=== PATIENT | male | born 1935 | race Caucasian/White ===

== ENCOUNTER 2019-09-10 15:36 | Inpatient (IN) | payer OTHER, MEDICARE ==
[~2019-09-10 15:36] MED LIST: PHENYLEPHRINE-NS 100 MCG/ML 10 ML SYRINGE ONE; Rocuronium Bromide 10 MG/ML (10ML VIAL) ONE
[2019-09-10 16:07] LABS: Hemoglobin 10.7 g/dL (14.0-18.0); Mean Corpuscular HGB CONC 31.7 g/dL (32.0-36.0); Mean Corpuscular Hemoglobin 31.6 pg (27.0-31.0); Mean Corpuscular Volume 99.8 fL (78.0-98.0); RBC Distribution Width 14.8 % (11.5-14.5); Red Blood Cell (RBC) Count 3.38 mill/uL (4.70-6.10); White Blood Cell (WBC) Count 5.6 thou/uL (4.8-10.8)
[2019-09-10 16:12] LABS: INR-International Normal Ratio 1.6; PTT 33.7 SEC (22.9-36.1); Prothrombin Time 18.8 SEC (12.0-14.7)
[2019-09-10 16:28] LABS: Band 10 % (5-11); Eosinophils 1 % (0-10); Helmet Cells SLIGHT = 2-5 cells (100X) (0-1/hpf); Hypochromia SLIGHT = 6-15 cells (100X) (0-5/hpf); Lymphocytes 7 % (21-51); MDiff Complete? YES; Macrocytosis SLIGHT = 6-15 cells (100X) (0-5/hpf); Mean Platelet Volume 9.5 fL (7.4-10.4); Monocytes 7 % (0-10); Neutrophil 75 % (42-75); Ovalocytes SLIGHT = 2-5 cells (100X) (0-1/hpf); Platelet Clumps SLIGHT; Platelet Morphology Comment PLT clumps seen-LOW; Polychromasia SLIGHT = 2-3 cells (100X) (0-2/hpf); Schistocytes SLIGHT = 2-5 cells (100X) (0-1/hpf); Tear Drops SLIGHT = 2-5 cells (100X) (0-1/hpf)
[2019-09-10 16:29] LABS: ALT (SGPT) 21 U/L (8-55); AST (SGOT) 54 U/L (5-34); Albumin 2.8 g/dL (3.4-4.8); Alkaline Phosphatase 96 U/L (40-110); Anion Gap 17 mmol/L (10-20); BUN (Urea Nitrogen) 43 mg/dL (8.4-25.7); Bilirubin, Total 1.5 mg/dL (0.2-1.2); CK (CPK) 208 U/L (30-200); Calc. Creatinine Clearance 0 mL/min (70-130); Carbon Dioxide 15 mmol/L (23-31); Chloride 112 mmol/L (98-107); Estimated GFR-MDRD 47; Globulin 3.1 g/dL (2.4-3.5); Glucose 102 mg/dL (83-110); Lipase 27 U/L (8-78); Potassium 5.4 mmol/L (3.5-5.1); Protein, Total 5.9 g/dL (5.8-8.1); Sodium 139 mmol/L (136-145)
[2019-09-10] MEDS ORDERED: Iopamidol-370 76% 500 ML 1 ML ONE (16:53)
[2019-09-10 16:54] LABS: CKMB 14.3 ng/mL (0-6.6)
[2019-09-10] MEDS ORDERED: Ondansetron PF 4 MG/2 ML Vial ONE ×2 (16:54)
--- NOTE | 2019-09-10 16:57 | CT ---
CT ABDOMEN WITH CONTRAST CT PELVIS WITH CONTRAST: DATE: 09/10/2019 HISTORY: 83-year-old male with hematemesis and hematochezia. COMPARISON: none TECHNIQUE: IV injection of iodinated contrast media: administered. Oral contrast media:Not administered FINDINGS: Poor contrast opacification of abdominal organs. Diffuse mural thickening of distal esophagus. Small right pleural effusion. Very small left pleural effusion. No pneumoperitoneum. Diffuse edema throughout the subcutaneous adipose tissues. Small amount of free fluid within pelvic cavity. Small t o moderate amount of free fluid in the abdominal cavity, especially around the liver. Small right lobe, enlarged caudate lobe, and enlarged left lobe of liver, with very nodular margins. Heterogeneou s mildly low-attenuation throughout large portion of right lobe of liver with ill-defined margins. Suture line along with stomach. The stomach is not narrowed despite the suture line. No splenomegaly. No hydronephrosis. No abdominal aortic aneurysm. No small bowel dilation. Presence of ascites and mesenteric edema makes it difficult to evaluate for colonic diverticulitis. Normal appendix, adrenals , pancreas, and urinary bladder. IMPRESSION: 1) hepatic cirrhosis. 2) possibility of infiltrative hepatocellular carcinoma involving right lobe of liver. 3) diffuse mural thickening of the esophagus. This could represent esophagitis, esophageal cancer, or varices. 4) small volume of ascites, anasarca, and bilateral pleural effusions (right greater than left). 5) bilateral L5 spondylolysis causing grade 1 or 2 spondylolisthesis at L5-S1, with associated severe degenerative disc disease and high-grade bilateral neural foraminal stenosis.
[2019-09-10] MEDS ORDERED: Acetaminophen 650 MG Suppository PR PRN (17:41)
[2019-09-10] MEDS ORDERED: HumaLOG 300 UNITS/3 ML VIAL SC PRN (17:41)
[2019-09-10] MEDS ORDERED: Dextrose 50% Abboject 50 ML SYRINGE SLOW IVP PRN (17:41)
[2019-09-10] MEDS ORDERED: Dextrose 5% in Water 1,000 ML IV PRN (17:41)
[2019-09-10] MEDS ORDERED: Acetaminophen 325 MG TAB PO PRN (17:41)
[2019-09-10] MEDS ORDERED: Guaifenesin DM 100-10/5 ML UDCUP PO PRN (17:41)
[2019-09-10] MEDS ORDERED: Ondansetron PF 4 MG/2 ML Vial IVP PRN (17:41)
[2019-09-10] MEDS ORDERED: Norepinephrine 8 MG/0.9% NS 250 ML IVPB SCH (17:45)
[2019-09-10] MEDS ORDERED: Rocuronium Bromide 10 MG/ML (10ML VIAL) ONE (17:56)
[2019-09-10] MEDS ORDERED: fentaNYL Citrate/PF 2,000 MCG in Sodium Chloride 0.9% 60 ML IV SCH (18:04)
--- NOTE | 2019-09-10 18:51 | CON ---
DATE OF CONSULTATION: 09/10/2019 REQUESTING PHYSICIAN: Aamir Christensen MD REASON FOR CONSULTATION: Hematemesis. HISTORY OF PRESENT ILLNESS: Nitesh Schneider is an 83-year-old man, who gets all of his care through the [facility] system. He gives a history of cirrhosis secondary to nonalcoholic steatohepatitis with complication of hepatocellular carcinoma. He evidently had a lesion treated with therapy back about 6 months ago. There is evidently another lesion for which microwave radiation therapy is planned in the next couple of months. The patient cannot recall ever having undergone upper endoscopy through all of this, so he has no known history of varices. No prior history of gastrointestinal bleeding. He is not on any beta-nae or anticoagulation. He does not take nonsteroidal anti-inflammatory drugs. About 3 days ago, the patient started passing stools that appeared black. This increased in volume today and additionally today, he started having multiple episodes of kaylynn hematemesis. This was a large amount earlier. He is clutching his emesis bag with kaylynn blood in it. He presented to the [facility] mentating well, but with blood pressures of 100 systolic and mild tachycardia of pulse 105. He feels his abdomen is more distended than usual as well. Labs at [facility] demonstrated hemoglobin 11.4. On repeat here, hemoglobin is 10.7. He has received 2 L of fluid evidently and he remains tachycardic. He has some coagulopathy with INR 1.6. Platelets 133. He is not having chest pain or significant shortness of breath. Labs do show troponin elevation to 1.26. Ammonia level is normal at 49. He received a dose of ceftriaxone and dose of 50 mcg of octreotide prior to transfer here. He continues on a Protonix drip, but octreotide drip is also being started. He is going to be transferred to the ICU. REVIEW OF SYSTEMS: Full review of systems including constitutional, head, eyes, ears, nose, throat, GI, , cardiovascular, respiratory, musculoskeletal, neurologic systems is negative except as noted in the HPI. PAST MEDICAL HISTORY: Diabetes type 2, obesity, bariatric surgery 30 years ago ("stomach stapling"), hyperlipidemia, hypertension, cholecystectomy, bilateral knee surgery, tonsillectomy, cirrhosis secondary to VELA, hepatocellular carcinoma, status post radiation therapy 6 months ago. SOCIAL HISTORY: The patient uses tobacco. No alcohol or drug use. FAMILY HISTORY: Noncontributory. ALLERGIES: NO KNOWN DRUG ALLERGIES. OUTPATIENT MEDICATIONS: 1. Amlodipine. 2. Losartan. 3. Metformin. 4. Simvastatin. 5. Glyburide. 6. Robaxin. 7. Vitamin B12. PHYSICAL EXAMINATION: VITAL SIGNS: Temperature 97.7, blood pressure 101/62, pulse 102, and 92% oxygen saturation on room air. GENERAL: Chronically ill appearing 83-year-old man, sitting up in the bed, in mild distress from back discomfort. SKIN: He is pale. No jaundice. No rashes were palpable. EYES: No scleral icterus. Extraocular movements intact. ENT: Mucous membranes moist. No oral lesions. LYMPH: No submandibular or supraclavicular lymphadenopathy. Thyroid nontender to palpation. HEART: Regular. Borderline tachycardia. LUNGS: Clear to auscultation bilaterally. ABDOMEN: Distended, dull to percussion on the flanks. Bowel sounds are present. Nontender to palpation. He has a surgical scar across most of the upper abdomen, he says from his prior stomach stapling surgery. EXTREMITIES: 1+ bilateral lower extremity edema. NEUROLOGIC: Cranial nerves 2 through 12 intact bilaterally. No focal deficits. No asterixis. VESSELS: Radial pulses 2+ bilaterally. MENTAL: He is alert and fully oriented. LABORATORY STUDIES: INR is 1.6. WBC 5.6, hemoglobin 10.7, platelets 133. Sodium 139, potassium 5.4, BUN 43, creatinine 1.43, glucose 102, total bilirubin 1.5, alkaline phosphatase 96, AST 54, ALT 21. CK is 208, CK-MB is 14.3, troponin 1.26. Ammonia normal at 49. BNP is 755.2. Albumin 2.8, lipase normal at 27. IMAGING STUDIES: CT of the abdomen and pelvis demonstrates cirrhosis, diffuse mural thickening of the esophagus, small volume of ascites and anasarca, and possible infiltrative hepatocellular carcinoma involving the right lobe of the liver. ASSESSMENT AND PLAN: 1. Kaylynn hematemesis. 2. Nonalcoholic steatohepatitis cirrhosis. 3. Hepatocellular carcinoma, undergoing treatments through the [facility] in [place]. 4. Coagulopathy, likely secondary to cirrhosis. 5. Troponin elevation, in the context of acute hematemesis and acute blood loss anemia. The patient is presenting with acute kaylynn hematemesis and hypotension all concerning for brisk upper GI bleeding. Importantly, he cannot recall ever having undergone esophagogastroduodenoscopy, though he has known diagnosis of cirrhosis and hepatocellular carcinoma. He is appropriately on IV Protonix and we are starting octreotide drip as well. We are going to need to proceed with emergent upper endoscopy this evening to try to locate the bleeding source, perform therapeutic intervention if indicated. The patient will appropriately be transferred to the ICU. He has already received a dose of ceftriaxone at the outside ER, and this should be continued as prophylaxis in the acute setting. Further recommendations following EGD this evening. Job ID: [id number]
--- NOTE | 2019-09-10 18:51 | HP ---
REASON FOR ADMISSION: Hematemesis, acute blood loss anemia, non-ST elevation AR , acute kidney injury, coagulopathy due to liver disease, and metabolic acidosis. HISTORY OF PRESENTING ILLNESS: The patient gives history of having watery diarrhea on Wednesday. He went nearly 5 to 6 times. No kaylynn blood on Wednesday. Wednesday, he started to have black stools. He has had nearly 10 of them. From yesterday, the patient has been throwing up blood. He says it was heavy yesterday, but the volume he says is coming down from this morning. The patient went to [facility] from where he was transferred here. He has known history of cirrhosis due to nonalcoholic steatohepatitis. The patient does not take any NSAIDs. No history of alcohol use. He continues to smoke. No current complaints of chest pain or palpitations or shortness of breath. He normally ambulates by himself. Off late, he is getting short of breath on exertion when he tries to ambulate outside the house. PAST MEDICAL AND SURGICAL HISTORY: History of cirrhosis due to nonalcoholic fatty liver disease; history of 2 spots in the liver, suspected to be malignancy. He has received Y-190 radioactive treatment 6 months back for 1 of the lesions, second lesion cropped up and there is plan for doing microwave ablation for that at [facility] in the coming months. He also had initial suspicion for spots in the lungs, which later turned out to be negative for malignancy per the patient. Diabetes mellitus type 2, hypertension, dyslipidemia, obesity, bilateral knee replacements, cholecystectomy, and tonsillectomy. No prior cardiac workup per the patient including stress test or stents placed. No history of heart failure in the past. CURRENT MEDICATIONS: The patient is on, 1. Norvasc 5 mg daily. 2. Losartan 50 mg daily. 3. Metformin 500 mg p.o. twice daily. 4. Zocor 20 mg p.o. daily. 5. Glyburide 5 mg twice daily. 6. Robaxin 500 mg q.6 hourly p.r.n. 7. Vitamin B12 of 1000 mcg p.o. daily. ALLERGIES: NO KNOWN DRUG ALLERGIES. PERSONAL HISTORY: Continues to smoke 3 to 4 cigarettes a day. He has been a heavy smoker in the past. Does not abuse alcohol or drugs. Lives alone. He ambulates by himself. FAMILY HISTORY: Mother at the age of 89 years. She has had history of lung cancer. Father at the age of 71 years. He has had history of coronary artery disease. Younger sister of lung cancer at the age of 50. CODE STATUS: The patient is a do not attempt to resuscitate. This was discussed with the patient and the patient's [id number] at bedside. Power of program consultant is his son, and [id number]. REVIEW OF SYSTEMS: CONSTITUTIONAL: Negative for weight loss or gain, ability to conduct usual activities. SKIN: Negative for rash, itching. EYES: Negative for double vision, pain. ENT/MOUTH: Negative for nose bleeding, neck stiffness, pain, tenderness. CARDIOVASCULAR: Negative for palpitations, dyspnea on exertion, orthopnea. RESPIRATORY: Negative for shortness of breath, wheezing, cough, hemoptysis, fever or night sweats. GASTROINTESTINAL: Negative for poor appetite, abdominal pain, heartburn, nausea , vomiting, constipation, or diarrhea. GENITOURINARY: Negative for urgency, frequency, dysuria, nocturia. MUSCULOSKELETAL: Negative for pain, swelling. NEUROLOGIC/PSYCHIATRIC: Negative for anxiety, depression. ALLERGY/IMMUNOLOGIC: Negative for skin rash, bleeding tendency. PHYSICAL EXAMINATION: GENERAL: The patient is an 83-year-old male, who is currently not in any acute distress. VITAL SIGNS: Blood pressure 96/54, pulse 90 per minute, respiratory rate is 18 per minute, the patient is afebrile, and saturating 99% on 2 L nasal cannula. NECK: Supple. No elevated JVD. HEENT: Eyes; extraocular muscles intact. Pupils are reacting to light. Oral cavity, mucous membranes are dry. The patient has active hematemesis at present with blood all over his oral cavity. No lacerations of the tongue or mucous membranes in the mouth. CARDIOVASCULAR SYSTEM: S1 and S2 heard. Regular rhythm. RESPIRATORY SYSTEM: Air entry 1+ bilateral. Scattered rales in the infraaxillary area, rhonchi plus bilateral. ABDOMEN: Mildly distended. No tenderness, rigidity, or guarding. EXTREMITIES: 1+ peripheral edema. No calf tenderness. VASCULAR SYSTEM: Peripheral pulses 1+ bilateral. No ischemic ulcerations or gangrene. CENTRAL NERVOUS SYSTEM: No gross focal deficits noted. The patient is alert, awake, and oriented well. PSYCHIATRIC SYSTEM: The patient's mood is euthymic. No hallucinations or delusions. LABORATORY DATA: H and H are 10.7 and 33 at present. He has had a previous CBC done at 2:30 p.m., H and H were 11 and 37, platelet count was 133 at 2:30 p.m. with 74% neutrophils. PT/INR 18/1.6, PTT is 33, serum bicarb 15, potassium 5.4, BUN 43, creatinine 1.4, serum glucose 102, total bilirubin 1.5. AST and ALT 54 and 21, alkaline phosphatase is 96. CK levels 208, CK-MB 14.3, troponin I 1.26. BNP is 755. Albumin is 2.8. CT abdomen and pelvis done shows findings of cirrhosis. There is possible day of infiltrative hepatocellular carcinoma involving right lobe of liver. There is diffuse mural thickening of the esophagus, could be due to esophageal cancer versus small volume ascites, anasarca, bilateral pleural effusions, right greater than left. There is bilateral L5 spondylosis. EKG done shows normal sinus rhythm at 80 beats per minute. There is T-inversion seen in anterolateral leads. The patient has low voltage EKG as well with poor R-wave progression. CLINICAL IMPRESSION AND PLAN: The patient will be admitted to ICU for hemorrhagic shock with hematemesis, acute blood loss anemia, metabolic acidosis, acute kidney injury, non ST elevation myocardial infarction, possible volume overload. He has already received total of around 2 L of IV fluid in the ER. We will continue him on Protonix 8 mg an hour, octreotide 25 to 50 mcg an hour, and Levophed for pressure support. He will be on nitroglycerin paste half-inch q.8 hourly. The patient will likely go for upper endoscopy shortly. Dr. Daniel Cadena has evaluated the patient here. We will give him 1 unit of packed cell and likely 2 units of FFP as well. He has mild coagulopathy due to liver disease. Echo with 2D Doppler for left ventricular function. I have spoken to Dr. Weiss for Cardiology. He will be kept n.p.o. for now except for medications. The patient has multiple medical issues as described above. Code status was discussed with him and he wants to be a do not attempt to resuscitate. We will also keep a close eye on his fingerstick glucose as well. I have consulted Dr. Fong for Pulmonary and Critical Care as well. I have given complete updates to the patient and his family at bedside. Job ID: [id number] MTDD
--- NOTE | 2019-09-10 19:10 | RAD ---
RADIOGRAPH CHEST 1 VIEW: DATE: 09/10/2019 TIME: 6:17 PM HISTORY: Status post intubation in 83-year-old male COMPARISON: 12/24/2013 FINDINGS: New endotracheal tube with distal tip overlying mid thoracic trachea. New esophagogastric tube is dif ficult to visualize inferior to the midportion of the mediastinum because of exposure technique. New prominent interstitial markings at lower lung zones. Right lateral costophrenic angle excluded fr om [id number]. No cardiomegaly. No pneumothorax. No consolidation. IMPRESSION: 1) status post intubation with endotracheal tube. 2) esophagogastric tube is difficult to visualize.
[2019-09-10 19:21] LABS: Hemoglobin 10.3 g/dL (14.0-18.0)
[2019-09-10 19:29] LABS: Bacteria/HPF None Seen HPF (None Seen); Bilirubin Negative (Negative); Blood, Urine Trace (Negative); Clarity Clear (Clear); Glucose, Urine (Dipstick) Normal (Negative); Leukocyte Negative Leu/uL (Negative); Nitrite Negative (Negative); Protein, Urine (Dipstick) 30 mg/dL (Neg-Trace); Squamous Epithelial 0-3 HPF (0-3); Urobilinogen Normal mg/dL (Less than 2)
[2019-09-10] MEDS ORDERED: Ketamine 50 MG/ML (10ML VIAL) ONE (19:49)
[2019-09-10] MEDS ORDERED: Phenylephrine HCL 10 MG/ML VIAL ONE (20:23)
[2019-09-10] MEDS: Sodium Chloride 0.9% 1,000 ML IV SCH (21:13)
[2019-09-10] MEDS: Octreotide Acetate 1,250 MCG in Sodium Chloride 0.9% 250 ML 250 ML IVPB SCH (21:26)
[2019-09-10] MEDS ORDERED: Octreotide Acetate 1,250 MCG in Sodium Chloride 0.9% 250 ML 250 ML IVPB SCH (21:30)
[2019-09-10 22:13] LABS: Critical Call Chem Troponin I RESULT DECREASING; Troponin I 1.342 ng/mL (< 0.028)
[2019-09-10 22:33] LABS: Actual Bicarbonate (HCO3a) 15.5 mEq/L (22-28); Base Excess (BEa) -11.2 mEq/L (-2.0 to +3.0); CO2 Tension 37.8 mmHg (35.0-45.0); Calcium, Ionized 1.16 mmol/L (1.12-1.30); Carboxyhemoglobin (COHb) 1.1 gm% (0.0-3.0); Hemoglobin (Hb) 11.9 g/dL (14.0-18.0); Potassium - ABG Lab 5.34 mmol/L (3.70-5.30)
[2019-09-10 22:41] LABS: pH, Arterial 7.23 (7.35-7.45)
[2019-09-10 22:42] LABS: Puncture Site RBA
[2019-09-10] MEDS: Pantoprazole 80 MG, Admixture Fee 1 EACH in Sodium Chloride 0.9% 100 ML IVPB SCH (23:02)
--- NOTE | 2019-09-10 23:15 | OP ---
DATE OF PROCEDURE: 09/10/2019 NAIL STICKER SURGEON: None. PROCEDURE PERFORMED: Esophagogastroduodenoscopy with endoscopic variceal band ligation and control of hemorrhage. MEDICATIONS: See Anesthesia record. FINDINGS: After discussion of the risks, benefits, and alternatives of the procedure, informed consent was obtained and witnessed. Pre-endoscopic cardiopulmonary examination was satisfactory. Time-out was performed before sedation was achieved. Sedation was achieved with Anesthesia assistance in the endoscopy unit. The patient was already endotracheally intubated and sedated. He was placed in the left lateral decubitus position. A Pentax adult upper endoscope was placed into the oropharynx and passed through the cricopharyngeus under direct visualization. The entire esophagus was filled with blood and clots. This was completely removed. Examination of the esophagus demonstrated 3 trunks of large esophageal varices in the distal esophagus. Just above the GE junction at 40 cm, there was a red spot with fibrin clot, considered to represent his recent bleeding site. It was not actively bleeding at this time. The endoscope was advanced into the stomach. The entire proximal stomach was full of fresh blood and clots. This was nearly completely evacuated, and I was able to get a good examination of the gastric mucosa. The patient has some postoperative deformity, which is a bit unusual. He has essentially a sleeve like area from the GE junction at 40 cm, down to 50 cm, with an area of narrow gastric lumen. There was some mucosal irritation and friability within this area, but no bleeding lesion identified, no gastric varices visualized. Beyond this area, on retroflexed view, there demonstrated a very deep paraesophageal hernia. With the endoscope retroflexed, I am really unable to get very far into this hernia space. There is a lot of dark blood and clots within that area, but no new blood issuing from that area, so it is not likely that there is a bleeding lesion within that paraesophageal hernia. There were no gastric varices visualized on retroflexion. After evacuating out copious blood from the stomach, there does appear to be some diffuse [id number] portal hypertensive gastropathy, but no bleeding lesion within the stomach. The endoscope was advanced through the pylorus and into the first and second portions of the duodenum, which appeared normal. The endoscope was then withdrawn back up into the distal esophagus. The variceal band ligation kit was applied to the tip of the endoscope. I then applied 3 bands successfully to varices in the distal esophagus, including over the red spot with fibrin clot in the very distal esophagus. Deployment was successful. At this point, the upper endoscope was completely withdrawn and the patient allowed to recover. The patient tolerated the procedure well. There were no immediate postprocedure complications. IMPRESSION: 1. Three trunks of large distal esophageal varices, including one with red spot and fibrin clot near the GE junction, representing the probable site of this bleeding episode. Three bands placed to varices in the distal esophagus, including over the fibrin clot, successfully. 2. Postoperative anatomy in the proximal stomach, with sleeve like area from 40 to 50 cm, mucosal friability in this area, but no bleeding site identified there. 3. Large paraesophageal hiatal hernia. 4. Diffuse portal hypertensive gastropathy. 5. No gastric varices visualized. RECOMMENDATIONS: 1. IV octreotide drip needs to run for the next 72 hours. 2. 2 units of FFP now. 3. Continue to trend H and H, transfuse as needed. 4. Continue IV ceftriaxone daily. 5. If the patient recovers from this acute episode, on hospital discharge, he will need a nonselective beta nae for variceal bleeding prophylaxis. He will also need to follow up closely [facility] [employer] [facility] [place], for repeat EGD with variceal banding in the next 1 to 2 months. 6. GI will continue to follow. Prognosis remains guarded. Job ID: [id number]
[2019-09-11] MEDS ORDERED: EPINEPHrine 1 MG/10 ML Abboject SYRINGE ONE (00:04)
[2019-09-11 00:41] LABS: Hemoglobin 10.9 g/dL (14.0-18.0)
[2019-09-11] MEDS: Norepinephrine 8 MG in Dextrose 5% in Water 242 ML IVPB PRN ×2 (02:16→18:44)
[2019-09-11] MEDS: Nitroglycerin 2% Ointment 1 INCH/1 GM Packet TOP SCH ×2 (02:35→05:41)
[2019-09-11 04:12] LABS: Anion Gap 14 mmol/L (10-20); BUN (Urea Nitrogen) 49 mg/dL (8.4-25.7); Carbon Dioxide 19 mmol/L (23-31); Chloride 112 mmol/L (98-107); Potassium 5.3 mmol/L (3.5-5.1); Sodium 140 mmol/L (136-145)
[2019-09-11 04:13] LABS: ALT (SGPT) 29 U/L (8-55); AST (SGOT) 79 U/L (5-34); Alkaline Phosphatase 87 U/L (40-110); Bilirubin, Total 2.3 mg/dL (0.2-1.2); Calc. Creatinine Clearance 65 mL/min (70-130); Calcium 8.8 mg/dL (7.8-10.44); Estimated GFR-MDRD 45; Globulin 3.2 g/dL (2.4-3.5); Glucose 153 mg/dL (83-110); Protein, Total 6.2 g/dL (5.8-8.1)
[2019-09-11] MEDS: Pantoprazole 80 MG, Admixture Fee 1 EACH in Sodium Chloride 0.9% 100 ML IVPB SCH (05:41)
[2019-09-11] MEDS: Sodium Chloride 0.9% 1,000 ML IV SCH (05:41)
[2019-09-11] MEDS: HumaLOG 300 UNITS/3 ML VIAL SC PRN ×2 (06:09→17:54)
[2019-09-11 06:42] LABS: Hemoglobin 11.7 g/dL (14.0-18.0)
[2019-09-11 08:03] VITALS: BP 101/75
[2019-09-11] MEDS: cefTRIAXone\\ROCEPHIN 2 GM in Sodium Chloride 0.9% 100 ML IVPB SCH (09:05)
--- NOTE | 2019-09-11 10:08 | PRG ---
DATE OF SERVICE: 09/11/2019 SUBJECTIVE: Mr. Schneider had an uneventful evening following his endoscopy last night. He remains on the ventilator, sedated. He has been hemodynamically stable after 5 units of RBCs and 4 units FFP. His hemoglobin is 11.7 today, so overall held steady. There has been no report of any further hematemesis, no melenic stools. OBJECTIVE: VITAL SIGNS: Blood pressure 97/42, pulse 88, 98% oxygen saturation on ventilator, and temperature is 98.1. GENERAL: Chronically ill, intubated, sedated. HEART: Regular rate and rhythm. LUNGS: Bibasilar crackles. ABDOMEN: Mild distention. Bowel sounds are present. Nontender to palpation. EXTREMITIES: 1+ bilateral lower extremity edema. LABORATORY STUDIES: Hemoglobin 11.7, hematocrit 34.8, platelets are 133, WBC 5.6. INR 1.6. Sodium 140, potassium 5.3, BUN 49, creatinine 1.50, glucose 157, total bilirubin 2.3, alkaline phosphatase 87, AST 79, ALT 29. Troponin was 1.34, albumin 3.0. ASSESSMENT AND PLAN: 1. Esophageal varices with hemorrhage, status post endoscopic band ligation x3 last night. 2. Large paraesophageal hiatal hernia. 3. Diffuse portal hypertensive gastropathy. 4. Acute blood loss anemia, appears to be stable after initial transfusions. 5. Cirrhosis, secondary to nonalcoholic steatohepatitis. 6. Hepatocellular carcinoma. Overall, it appears there is no further evidence of overt bleeding since his presentation last night. The patient will need to remain on the octreotide drip 50 mcg/hour for at least 72 hours from last night. The Protonix can be transitioned to 40 mg IV q.12 hours. I would continue with the IV ceftriaxone. Hopefully, he will be able to be extubated later today. If so, he could have a clear liquid diet today. 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 7. Please call anytime with questions or concerns. Job ID: [id number]
[2019-09-11] MEDS ORDERED: Sodium Chloride 0.9% (PF) 10 ML VIAL FS PRN (11:40)
[2019-09-11 12:18] LABS: Hemoglobin 11.7 g/dL (14.0-18.0)
[2019-09-11] MEDS ORDERED: Furosemide 40 MG/4 ML VIAL SLOW IVP SCH (12:30)
--- NOTE | 2019-09-11 13:29 | CON ---
DATE OF CONSULTATION: 09/11/2019 SERVICE: Pulmonary Medicine. REASON FOR CONSULTATION: ICU patient. 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 He was in his usual state of health when he started vomiting up blood. Originally, he was unstable. He was intubated for airway protection. He went down for an EGD and got banded x3. He is left on mechanical ventilation for the dust settle overnight. Currently, he is breathing very comfortably. He is awake and alert. He is able to answer to simple commands. PAST MEDICAL HISTORY: 1. 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 2. Nonalcoholic steatohepatitis. 3. Liver cancer, suspected. 4. Type 2 diabetes mellitus. 5. Hypertension. 6. Dyslipidemia. 7. Morbid obesity. PAST SURGICAL HISTORY: 1. Bilateral knee replacements. 2. Cholecystectomy. 3. Tonsillectomy. ALLERGIES: NO KNOWN DRUG ALLERGIES. MEDICATIONS: List of his inpatient medications was reviewed. Multiple updates were made at this time. FAMILY HISTORY: Noncontributory. SOCIAL HISTORY: He smokes half a pack on a daily basis. He has a greater than 50 pack-year history of smoking. Denies any significant alcohol or illicit drugs. REVIEW OF SYSTEMS: General; head, ears, eyes, nose, throat; cardiovascular; respiratory; GI; ; musculoskeletal; neurologic; and skin are negative except as mentioned in the HPI. PHYSICAL EXAMINATION: VITAL SIGNS: Afebrile, pulse 89, blood pressure 100/67, respirations 11, and saturation 94% currently on 27% FiO2 delivered via ventilator with a PEEP of 5. GENERAL: The patient is intubated and sedated. HEENT: Normocephalic and atraumatic. Sclerae white. Conjunctivae pink. Oral mucosa is moist without lesions. LUNGS: Decent air entry. Dependent crackles are present. No prolonged expiratory phase is present. Rhonchi are there, but clear with cough. No wheezing. HEART: Normal rate and regular. ABDOMEN: Soft, nontender, and nondistended. Bowel sounds are positive. MUSCULOSKELETAL: No cyanosis or clubbing. No pitting in the bilateral lower extremities. NEUROLOGIC: Grossly nonfocal. LABORATORY DATA: Hemoglobin 11.7 and currently stable. INR 1.6. A pH 7.23, pCO2 of 37, pO2 of 99. Creatinine 1.50, which is gently up trending and above the baseline from 2014 of 0.4. BUN 49. Potassium 5.3 and gently downtrending. Basic metabolic profile is otherwise unremarkable. Total bilirubin 2.3, AST 79, ALT and alkaline phosphatase are normal. Troponin is trending downward to 1.3. Urinalysis is unremarkable. IMAGING: CT of the abdomen and pelvis demonstrates hepatic cirrhosis. Suspected hepatocellular carcinoma in the right lobe of the liver. Diffuse mural thickening of the esophagus. Small volume ascites. Lung windows are clean. His chest x- ray demonstrates good placement of the endotracheal tube. The enteric catheter courses midline. ASSESSMENT: 1. Respiratory failure secondary to inability to protect airway. 2. Acute blood loss anemia. 3. Hemorrhagic shock, resolved. 4. Qyg-TL-[id number] myocardial infarction secondary to demand from the stressful event. 5. Nonalcoholic steatohepatitis. 6. Variceal bleed. 7. Cirrhosis, advanced. 8. Acute kidney injury, presumed. DISCUSSION AND PLAN: We will give the patient a dose of Lasix, now that his hemodynamics is stabilized to touch. I will put him on a spontaneous breathing trial with pressure support ventilation at 5/5. If he meets criteria, extubation will be considered. Pulmonary/Critical Care will continue to follow along in this location. He needs remain in the ICU for an additional 24 hours. If he is doing well, he can be transitioned to the floor in the morning. Critical care time: 30 minutes. Job ID: [id number] MTDD
--- NOTE | 2019-09-11 14:21 | PDOC.HOSPP ---
- Subjective Encounter Date: 09/11/19 Encounter Time: 12:00 Subjective: got extubated this am, doing well responds to verbal stimuli son at bedside - Objective Vital Signs & Weight: Vital Signs (12 hours) Temp Pulse Pulse Resp BP BP Pulse Ox 09/11/19 13:04 90 13 09/11/19 12:00 97.8 F 92 L 09/11/19 08:00 98.1 F 11 L 99 09/11/19 07:54 92 101/75 09/11/19 06:00 15 09/11/19 04:00 97.5 F L 20 09/11/19 02:30 97.5 F L 88 15 105/56 L 94 L Weight Weight 280 lb 6.848 oz Most Recent Monitor Data Heart Rate from ECG 103 NIBP 108/62 NIBP BP-Mean 77 Respiration from ECG 13 SpO2 94 I&O: 09/10/19 09/11/19 09/12/19 06:59 06:59 06:59 Intake Total 2308 64 Output Total 625 140 Balance 1683 -76 Result Diagrams: 09/11/19 12:05 09/11/19 03:40 Additional Labs: Accuchecks 09/11/19 09/11/19 09/11/19 11:46 06:09 00:52 POC Glucose 160 H 157 H 122 H Hospitalist ROS - Medication Medications: Active Medications Generic Name Dose Route Start Last Admin Trade Name Freq PRN Reason Stop Dose Admin Albuterol/Ipratropium 3 ml 09/10/19 19:00 09/11/19 13:04 Duoneb NEB 3 ml [id number] KAVITA Administration Furosemide 40 mg 09/11/19 12:30 09/11/19 12:55 Lasix SLOW IVP 09/11/19 14:30 40 mg NOW KAVITA Administration Ceftriaxone Sodium 2 gm/ 100 mls @ 200 mls/hr 09/11/19 09:00 09/11/19 09:05 Sodium Chloride IVPB 100 mls Q24HR KAVITA Administration Octreotide Acetate 1,250 mcg/ 251.25 mls @ 10.05 mls/hr 09/10/19 17:45 21:26 Sodium Chloride IVPB 09/13/19 23:59 251.25 mls INF KAVITA Administration 50 MCG/HR Norepinephrine Bitartrate 8 mg 250 mls @ 0 mls/hr 09/11/19 01:51 09/11/19 02: 16 / Dextrose/Water IVPB 250 mls INF PRN Administration TO MAINTAIN MAP > 65 Protocol As Directed Insulin Human Lispro 0 units 09/10/19 17:41 09/11/19 06:09 Humalog SC 2 unit .MODERATE SLIDING SC PRN Administration Moderate Correctional Scale - Exam General Appearance: awake alert Eye: PERRL, anicteric sclera ENT: no oropharyngeal lesions, dry oral mucosa Neck: supple, no JVD Heart: RRR, no murmur Respiratory: no wheezes, no rales, rhonchi Gastrointestinal: soft, non-tender, non-distended, normal bowel sounds Extremities: no cyanosis, 1+ LE edema Neurological: cranial nerve grossly intact, no focal deficits Hosp A/P (1) GI bleed Code(s): K92.2 - GASTROINTESTINAL HEMORRHAGE, UNSPECIFIED Status: Acute (2) Acute blood loss anemia Code(s): D62 - ACUTE POSTHEMORRHAGIC ANEMIA Status: Acute (3) Cirrhosis Code(s): K74.60 - UNSPECIFIED CIRRHOSIS OF LIVER Status: Chronic Qualifiers: Hepatic cirrhosis type: other cirrhosis Qualified Code(s): K74.69 - Other cirrhosis of liver (4) MK (acute kidney injury) Code(s): N17.9 - ACUTE KIDNEY FAILURE, UNSPECIFIED Status: Acute (5) NSTEMI (non-ST elevated myocardial infarction) Code(s): I21.4 - NON-ST ELEVATION (NSTEMI) MYOCARDIAL INFARCTION Status: Acute (6) Metabolic acidosis Code(s): E87.2 - ACIDOSIS Status: Acute (7) Coagulopathy Status: Acute (8) Tobacco abuse Code(s): Z72.0 - TOBACCO USE Status: Acute - Plan got a total of 4 u prbc and 3 ffp's had banding of 3 varices in esophagus on protonix iv, octreotide drip lasix, empiric cefriaxone hemostable now may start clear liq diet from this evening if ok with GI I have updates to son at bedside
[2019-09-11] MEDS: Octreotide Acetate 1,250 MCG in Sodium Chloride 0.9% 250 ML 250 ML IVPB SCH (18:43)
[2019-09-11] MEDS ORDERED: Cepastat Lozenges 1 LOZ PO PRN (20:35)
[2019-09-11] MEDS: Benzonatate 100 MG CAP PO PRN (20:41)
[2019-09-11] MEDS: Pantoprazole 40 MG VIAL IVP SCH (20:42)
[2019-09-11] MEDS ORDERED: Pantoprazole 40 MG VIAL IVP SCH (21:00)
--- NOTE | 2019-09-12 00:35 | CON ---
DATE OF CONSULTATION: INDICATION FOR ADMISSION: GI bleed. INDICATION FOR CONSULTATION: Abnormal cardiac enzymes and elevated troponin I. HISTORY OF PRESENT ILLNESS: This is a very unfortunate 83-year-old gentleman, who has a history of nonalcoholic fatty cirrhosis, also has some suspected malignancy in his liver, has been undergoing radiation treatments. He presented to the emergency room I believe in [place], where he started noticing that he had some dark stools. Last weekend, he had several of them and then he started having hematemesis. He was seen yesterday and underwent an evaluation by director selection and administration. He was found to have esophageal varices with hemorrhage. He has been given several units of blood. He seems to have stabilized at this time. He still remains on medical management in the intensive care unit. He has had according to the patient no previous cardiac history; however, he does have abnormal cardiac enzymes as his troponin I on admission was 1.2, it was increased up to 1.49 and back down to 1.32 with an MB of 14.3, certainly could be indicative of a vbn-WU-noeaeja elevation myocardial infarction. His EKG did show a sinus rhythm with some nonspecific ST-segment changes in the anterior and lateral leads, somewhat suspicious for anterior ischemia. The patient at this time is not a candidate for further evaluation due to his acute GI bleed, but we will certainly watch him very carefully to ensure that he does not become more ischemic. He is not able to be on anticoagulation obviously at this time. He does have a recent cough also, which appears to be some type of bronchitis. He denies any previous pulmonary or cardiac abnormalities. He also appears to be somewhat hypotensive and blood pressure has been on the low side, and while I am seeing him, he is sitting up in a chair, actually reclining, his blood pressure is 86/52, heart rate is in the 90s and shows a sinus rhythm, O2 saturations were stable. He denies any chest pain or significant shortness of breath. PAST MEDICAL HISTORY: Significant for as noted above the nonalcoholic cirrhosis, which was felt to be due to uncertain etiology, but he is actually undergoing treatment for this. He has also had some possible malignancies, but it is uncertain. He has some evidence of areas in his liver as well as in his lungs. He has a history of dyslipidemia, type 2 diabetes, hypertension. He had bilateral knee replacements, tonsillectomy, and cholecystectomy. He has obesity. MEDICATIONS: His medications prior to admission include, 1. Norvasc. 2. Losartan. 3. Metformin. 4. Zocor. 5. Glyburide. 6. Robaxin. 7. Vitamin B12. ALLERGIES: NONE. SOCIAL HISTORY: Unfortunately, the patient continues to smoke about 3 to 4 cigarettes a day. He had previously smoked a lot more. He has no significant alcohol use. He is usually seen by the [place]. He lives alone. FAMILY HISTORY: Noncontributory for any early heart disease except the father who had some coronary disease perhaps at a younger age, but at age 71. He has a sister who also of lung cancer at age 50. REVIEW OF SYSTEMS: He mainly complained of the recent dark stools and hematemesis. He said he has no pulmonary complaints or shortness of breath. He had no chest pain or palpitations. He has had no other complaints on the review of systems. No seizures or syncope. PHYSICAL EXAMINATION: GENERAL: An elderly gentleman, who is in no acute distress at this time. VITAL SIGNS: Blood pressure is 86/52, heart rate is in the 90s, in sinus rhythm, O2 saturation is 94%, and respiratory rate 16. HEENT: Unremarkable. He is normocephalic and atraumatic. He does have a cough during the evaluation. CARDIOVASCULAR: Heart sounds are somewhat distant. He has a normal S1 and S2, but I cannot hear an S3 nor an S4. There were no significant murmurs, heaves, thrills, bruits or rubs. ABDOMEN: Obese. Positive bowel sounds are present. EXTREMITIES: No clubbing or cyanosis. Pedal pulses are somewhat difficult to palpate. NEUROLOGICAL: The patient appears to be intact. LABORATORY DATA: Pertinent as noted above. Potassium was elevated however at 5.3. His renal function shows creatinine of 1.4. Blood sugar was within normal limits at 102. An EKG is noted. IMPRESSION: 1. Elderly gentleman with a gastrointestinal bleed due to esophageal varices, who received multiple units of blood. He also has a history of possible malignancy with non-alcoholic cirrhosis. He has been seen by director selection and administration, already undergone endoscopy, was found to have the esophageal varices. 2. Probable vmw-PK-yvbxbro elevation myocardial infarction due to the EKG changes and slight abnormalities of the cardiac enzymes. He quite possibly has underlying coronary artery disease. He should undergo stress testing hopefully in the future. Right now, he is not a candidate for any type of stress testing or intervention due to his recent GI bleeding. The patient is a DNR status. 3. History of hypertension. This remains stable, actually on the low side at this time after the gastrointestinal bleed. 4. Diabetes. This will be dealt with by the primary care service. 5. Dyslipidemia, which also will be dealt by the primary care service. We will continue his medications. We will be more than happy to continue to follow the patient with you, but at this time, I would agree with his present management. If the blood pressure becomes more stable, then obviously we can try to start him on a beta-nae due to the probable underlying coronary artery disease. Also, the heart rate is slightly elevated, but this may be due to the anemia. We will be more than happy to continue to follow the patient, but would suggest that he undergo stress testing as an outpatient unless he becomes more unstable while he is here. Job ID: [id number]
[2019-09-12] MEDS: Norepinephrine 8 MG in Dextrose 5% in Water 242 ML IVPB PRN (05:29)
[2019-09-12] MEDS: Furosemide 20 MG/2 ML VIAL SLOW IVP SCH (05:29)
[2019-09-12] MEDS: Benzonatate 100 MG CAP PO PRN (08:17)
[2019-09-12] MEDS: cefTRIAXone\\ROCEPHIN 2 GM in Sodium Chloride 0.9% 100 ML IVPB SCH (08:17)
[2019-09-12] MEDS: Pantoprazole 40 MG VIAL IVP SCH ×2 (08:18→21:04)
--- NOTE | 2019-09-12 08:19 | RAD ---
Exam: Chest one view HISTORY:Status post extubation. Comparison: 09/10/2019 FINDINGS: Lines and tubes: Interval removal of endotracheal tube. Cardiac silhouette:Stable upper normal cardiac silhouette Aorta: Atherosclerosis Pulmonary vessels: Normal Costophrenic angles: Clear LUNGS: Persistent patchy interstitial and alveolar opacities. Pneumothorax: None Osseous abnormalities: None IMPRESSION: 1. Interval removal of endotracheal tube 2. Improved aeration. Nevertheless, there continue to be patchy interstitial and alveolar opacities
[2019-09-12 08:44] LABS: Anion Gap 14 mmol/L (10-20); BUN (Urea Nitrogen) 68 mg/dL (8.4-25.7); Calc. Creatinine Clearance 45 mL/min (70-130); Calcium 8.5 mg/dL (7.8-10.44); Carbon Dioxide 17 mmol/L (23-31); Chloride 114 mmol/L (98-107); Estimated GFR-MDRD 29; Glucose 118 mg/dL (83-110); Potassium 4.9 mmol/L (3.5-5.1); Sodium 140 mmol/L (136-145)
[2019-09-12 09:18] LABS: Band 11 % (5-11); Hemoglobin 11.4 g/dL (14.0-18.0); Lymphocytes 5 % (21-51); MDiff Complete? YES; Mean Corpuscular HGB CONC 32.9 g/dL (32.0-36.0); Mean Corpuscular Hemoglobin 31.4 pg (27.0-31.0); Mean Corpuscular Volume 95.6 fL (78.0-98.0); Mean Platelet Volume 9.2 fL (7.4-10.4); Monocytes 7 % (0-10); Neutrophil 77 % (42-75); Nucleated RBC 1 % (0); Platelet Count 76 thou/uL (130-400); Platelet Morphology Comment Appears Decreased; RBC Distribution Width 15.7 % (11.5-14.5); RBC Morphology Normal; Red Blood Cell (RBC) Count 3.62 mill/uL (4.70-6.10); White Blood Cell (WBC) Count 9.9 thou/uL (4.8-10.8)
[2019-09-12] MEDS ORDERED: DOPamine 400 MG/D5W 250 ML 250 ML IVPB SCH (10:00)
[2019-09-12] MEDS ORDERED: Prevnar 13-Val Conj/PF 0.5 ML SYRINGE IM ONE (11:00)
--- NOTE | 2019-09-12 12:34 | PRG ---
DATE OF SERVICE: 09/12/2019 SUBJECTIVE: Mr. Schneider was extubated successfully yesterday. He is feeling comfortable and a little more energetic today. He denies any chest pain or abdominal pain. There has been no vomiting. No melena. He has passed some gas. He has had some issues with hypotension. OBJECTIVE: VITAL SIGNS: Temperature 97.5, pulse 97, blood pressure 88/58, 100% oxygen saturation on room air. GENERAL: Sitting up in bed comfortably, in no acute distress. HEART: Regular rate and rhythm. LUNGS: Bibasilar crackles. ABDOMEN: Mild distention. Bowel sounds present. Soft, nontender to palpation. EXTREMITIES: No peripheral edema. LABORATORY STUDIES: Hemoglobin is stable at 11.4, WBC 9.9, platelets 76. INR 1.6. Sodium 140, potassium 4.9, BUN up to 68, creatinine up to 2.19, glucose 105. ASSESSMENT AND PLAN: 1. Esophageal variceal hemorrhage, status post endoscopic variceal band ligation on the evening of 09/10/2019. 2. Acute blood loss anemia, stable after initial transfusions. 3. Cirrhosis, secondary to nonalcoholic steatohepatitis. 4. Hepatocellular carcinoma. 5. Acute kidney injury. I would continue on the octreotide drip for a total of 72 hours from the time of the procedure, which would be at least until tomorrow evening. It can be titrated down to 25 mcg/hour. I would continue with the IV ceftriaxone. If his blood pressures permit, it would be best if he were discharged on a nonselective beta nae, but it is not clear if that will be the case. The elevation in creatinine is bit worrisome. Follow up electrolytes tomorrow. Again, discussed with the patient and with his family that his overall prognosis remains grim, given his hepatocellular carcinoma and now decompensation of portal hypertension. Job ID: [id number]
--- NOTE | 2019-09-12 14:07 | PDOC.PALCO ---
Palliative Care Consult - Consult Details Requesting Physician: Dr Fong Reason for Consult: goals of care, family support Family Members Present: None - Pertinent HPI 83 year old male who has an onset of watery diarrhea 09/08/19 progressing to black stool on Wednesday x 10. Onset of hematemesis. sought care at [place] emergency room ans was transferred to [facility] for a higher lever of care related to hemorrhagic shock with hematemesis, acute blood loss anemia, metabolic acidosis, acute kidney injury. - Social History Smoking Status: Current every day smoker Smoking: cigarettes Alcohol Use: none Drug Use History: none Living Situation: other (His son and daughter in law live with him) - Medications MAR Reviewed: Yes - Allergies Allergies/Adverse Reactions: Allergies Allergy/AdvReac Type Severity Reaction Status Date / Time No Known Drug Allergies Allergy Verified 09/11/19 10:50 - Subjective Awake, alert. Push of speech with conversation, states shortness of breath with exertion, cough. Mild abdominal discomfort/generalized. Denies nausea, vomiting, cramping, headache, numbness, altered vision, incontinence, chest pain or discomfort - Objective Vital Signs: Vital Signs - Most Recent Temp Pulse Resp BP Pulse Ox 97.5 F L 101 H 19 101/75 99 09/12/19 08:00 09/12/19 13:13 09/12/19 13:13 09/11/19 07:54 09/12/19 08:00 Palliative Performance Scale: 40 - Advance Directives Medical Power of Adjunct Teacher: Bret Larkin [phone] - Physical Exam Deviation from normal: ill appearing, o2 dependent, shortness of breath with exertion. HEENT: moist MMs, EOMI Deviation from normal: slight icteric sclera Respiratory: no rhonchi, tachypnea Deviation from normal: push of speech with conversation Cardiovascular: RRR Gastrointestinal: soft Deviation from normal: distneded, tenderness Musculoskeletal: no edema, pulses present Neurological: moves all 4 limbs Psychiatric: normal affect, A&O x 3 Skin: normal turgor, cap refill <2 seconds - Problem List (1) Palliative care encounter Code(s): Z51.5 - ENCOUNTER FOR PALLIATIVE CARE Current Visit: Yes Status: Acute (2) Acute blood loss anemia Code(s): D62 - ACUTE POSTHEMORRHAGIC ANEMIA Current Visit: Yes Status: Acute (3) Coagulopathy Current Visit: Yes Status: Acute (4) GI bleed Code(s): K92.2 - GASTROINTESTINAL HEMORRHAGE, UNSPECIFIED Current Visit: Yes Status: Acute (5) Cirrhosis Code(s): K74.60 - UNSPECIFIED CIRRHOSIS OF LIVER Current Visit: Yes Status: Chronic Qualifiers: Hepatic cirrhosis type: other cirrhosis Qualified Code(s): K74.69 - Other cirrhosis of liver - Plan/Recommendations Plan: VIsited with patient at length. Currently lives in [place], his 8 years ago and his don and daughter in law moved in to assist with property and care for him. Said he has some understanding of "what is going on" but feels like he has received a great amount of information in the past few days. He is easily fatigued. Discussed visiting tomorrow and discussing chronic conditions and goal of care. Spoke with son on the phone, agreeable to meeting tomorrow. Son - Nitesh Schneider [phone] *Family meeting 09/13 at 10 am with patient and son to discuss health status, disease trajectory and goal of care. [75] minutes spent on this encounter with >50% of the time in counseling and coordination of care. Thank you for this very appropriate consult.
--- NOTE | 2019-09-12 15:15 | PRG ---
DATE OF SERVICE: 09/12/2019 SERVICE: Pulmonary Medicine. INTERVAL HISTORY: The patient is doing fine from respiratory standpoint. He is breathing comfortably. After extubation yesterday, he did not have any respiratory difficulties. We gave him a little dose of Lasix, but he did not have any urine output with that. His blood pressure has been quite marginal overnight. PHYSICAL EXAMINATION: VITAL SIGNS: Afebrile; pulse 90; blood pressure 96/73; respirations 14; and saturation 100%, currently on 1 L nasal cannula. GENERAL: The patient is awake and alert, in no apparent distress. LUNGS: Decent air entry. There is dependent crackles present. No prolonged expiratory phase or wheezing is appreciated. HEART: Normal rate, regular. ABDOMEN: Soft, nontender, and nondistended. Bowel sounds are soft. No tenderness to palpation. Bowel sounds are present. He is little distended, but he has no discomfort with palpation. MUSCULOSKELETAL: No cyanosis or clubbing. 2+ pitting throughout. NEUROLOGIC: Grossly nonfocal. LABORATORY DATA: WBC 9.9, hemoglobin 11.4, and platelets 76,000. INR 1.6. PH of 7.23, pCO2 of 37, and pO2 of 99. Creatinine 2.19 and gently up-trending, BUN 68, bicarb 17, anion gap 14. Basic metabolic profile is otherwise unremarkable. IMAGING DATA: Echocardiogram demonstrates 30% to 35% ejection fraction as well as diastolic dysfunction. Mild aortic stenosis is noted. No significant valvular abnormalities are otherwise identified. ASSESSMENT: 1. Acute hypoxic respiratory failure, resolving. 2. Acute blood loss anemia, stable. 3. Hemorrhagic shock, resolved. 4. Xlv-TS-[id number] myocardial infarction secondary to demand. 5. Acute on chronic systolic and diastolic heart failure. 6. 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 7. Status post variceal bleed. 8. Acute kidney injury, on chronic kidney disease, 3. DISCUSSION AND PLAN: We will give the patient a daily dose of Lasix. He is volume up, but because of acute kidney injury, we have a hard time mobilizing the fluids. We will watch his acidosis. If this progresses, bicarb may need to be initiated. His blood pressures were marginal with an acute kidney injury. As such, we will introduce a very low dose of dobutamine to see if we can improve on cardiac output. Pulmonary/Critical Care will continue to follow along while the patient remains in the ICU. Job ID: [id number]
--- NOTE | 2019-09-12 17:11 | PDOC.HOSPP ---
- Subjective Encounter Date: 09/12/19 Encounter Time: 10:15 Subjective: awakens easily, converses well but soon falls asleep moves all extremities but appears to be deconditioned - Objective Vital Signs & Weight: Vital Signs (12 hours) Temp Pulse Resp Pulse Ox 09/12/19 16:00 97.7 F 09/12/19 14:00 97.7 F 09/12/19 13:13 101 H 19 09/12/19 08:00 97.5 F L 99 09/12/19 07:35 97 17 Weight Weight 280 lb 6.848 oz Most Recent Monitor Data Heart Rate from ECG 99 NIBP 93/47 NIBP BP-Mean 62 Respiration from ECG 15 SpO2 100 I&O: 09/11/19 09/12/19 09/13/19 06:59 06:59 06:59 Intake Total 2308 2444 368 Output Total 625 621 283 Balance 1683 1823 85 Result Diagrams: 09/12/19 08:06 09/12/19 08:06 Additional Labs: Accuchecks 09/12/19 09/12/19 09/12/19 11:28 05:36 00:09 POC Glucose 105 124 H 123 H 09/11/19 17:56 POC Glucose 170 H Hospitalist ROS - Medication Medications: Active Medications Generic Name Dose Route Start Last Admin Trade Name Freq PRN Reason Stop Dose Admin Albuterol/Ipratropium 3 ml 09/10/19 19:00 09/12/19 13:13 Duoneb NEB 3 ml [id number] KAVITA Administration Benzonatate 100 mg 09/11/19 20:35 09/12/19 08:17 Tessalon PO 100 mg TIDPRN PRN Administration Cough Furosemide 20 mg 09/12/19 06:00 09/12/19 05:29 Lasix SLOW IVP 20 mg 0600 KAVITA Administration Octreotide Acetate 1,250 mcg/ 251.25 mls @ 5.02 mls/hr 09/10/19 17:45 18:43 Sodium Chloride IVPB 09/13/19 23:59 251.25 mls INF KAVITA Administration 25 MCG/HR Norepinephrine Bitartrate 8 mg 250 mls @ 0 mls/hr 09/11/19 01:51 09/11/19 18: 44 / Dextrose/Water IVPB 250 mls INF PRN Administration TO MAINTAIN MAP > 65 Protocol As Directed Dopamine HCl/Dextrose 250 mls @ 0 mls/hr 09/12/19 10:00 09/12/19 10:00 Dopamine 400 Mg/D5w 250 Ml IVPB 250 mls INF KAVITA Administration As Directed Insulin Human Lispro 0 units 09/10/19 17:41 09/11/19 17:54 Humalog SC 2 unit .MODERATE SLIDING SC PRN Administration Moderate Correctional Scale Pantoprazole Sodium 40 mg 09/11/19 21:00 09/12/19 08:18 Protonix IVP 40 mg BID KAVITA Administration Sodium Chloride 10 ml 09/11/19 11:40 09/11/19 20:42 Normal Saline Pf FS 10 ml PRN PRN Administration RECONSTITUTION - Exam General Appearance: ill appearing Eye: PERRL, anicteric sclera ENT: no oropharyngeal lesions, dry oral mucosa Neck: supple, no JVD Heart: RRR, no murmur Respiratory: no wheezes, no rales Gastrointestinal: soft, non-tender, normal bowel sounds, no guarding, no rigidity Extremities: no cyanosis, 1+ LE edema Neurological: cranial nerve grossly intact, no focal deficits Hosp A/P (1) GI bleed Code(s): K92.2 - GASTROINTESTINAL HEMORRHAGE, UNSPECIFIED Status: Acute (2) Acute blood loss anemia Code(s): D62 - ACUTE POSTHEMORRHAGIC ANEMIA Status: Acute (3) Cirrhosis Code(s): K74.60 - UNSPECIFIED CIRRHOSIS OF LIVER Status: Chronic Qualifiers: Hepatic cirrhosis type: other cirrhosis Qualified Code(s): K74.69 - Other cirrhosis of liver (4) MK (acute kidney injury) Code(s): N17.9 - ACUTE KIDNEY FAILURE, UNSPECIFIED Status: Acute (5) NSTEMI (non-ST elevated myocardial infarction) Code(s): I21.4 - NON-ST ELEVATION (NSTEMI) MYOCARDIAL INFARCTION Status: Acute (6) Metabolic acidosis Code(s): E87.2 - ACIDOSIS Status: Acute (7) Coagulopathy Status: Acute (8) Tobacco abuse Code(s): Z72.0 - TOBACCO USE Status: Acute - Plan got a total of 5 u prbc and 3 ffp's had 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 is on dopamine infusion per urine is high colored, has low intravasc volume, has chronic edema in LE PT to mobilize more as tolerated MAP of around 70 this am echo shows ef of 35% with inf wall hypokinesis
[2019-09-12] MEDS ORDERED: Albumin 25% 25 GM/100 ML BOT IVPB SCH ×2 (18:00→18:30)
[2019-09-12] MEDS: HumaLOG 300 UNITS/3 ML VIAL SC PRN (21:35)
[2019-09-12 22:09] LABS: Creatinine, Urine 193.26 mg/dL (63-166); Sodium, Urine Less than 20 mmol/L (Not Available)
[2019-09-13] MEDS: Albumin 25% 25 GM/100 ML BOT IVPB SCH ×4 (01:05→18:03)
[2019-09-13 04:05] VITALS: TEMP 97.9
[2019-09-13 04:41] LABS: #Eosinphils 0.1 thou/uL (0.0-0.7); #Lymphocytes 0.6 thou/uL (1.20-3.40); #Monocytes 0.7 thou/uL (0.11-0.59); #Neutrophils 5.2 thou/uL (1.40-6.50); %Basophils 0.4 % (0.0-1.0); %Eosinophils 0.9 % (0.0-10.0); %Lymphocytes 8.5 % (21.0-51.0); %Monocytes 10.9 % (0.0-10.0); %Neutrophils 79.3 % (42.0-75.0); Hemoglobin 10.4 g/dL (14.0-18.0); Mean Corpuscular HGB CONC 33.1 g/dL (32.0-36.0); Mean Corpuscular Hemoglobin 31.6 pg (27.0-31.0); Mean Corpuscular Volume 95.5 fL (78.0-98.0); Mean Platelet Volume 9.3 fL (7.4-10.4); Platelet Count 66 thou/uL (130-400); RBC Distribution Width 15.8 % (11.5-14.5); Red Blood Cell (RBC) Count 3.28 mill/uL (4.70-6.10); White Blood Cell (WBC) Count 6.5 thou/uL (4.8-10.8)
[2019-09-13 04:56] LABS: ALT (SGPT) 43 U/L (8-55); AST (SGOT) 132 U/L (5-34); Albumin 3.5 g/dL (3.4-4.8); Alkaline Phosphatase 85 U/L (40-110); Anion Gap 15 mmol/L (10-20); BUN (Urea Nitrogen) 82 mg/dL (8.4-25.7); Bilirubin, Total 1.1 mg/dL (0.2-1.2); Calc. Creatinine Clearance 39 mL/min (70-130); Calcium 9.1 mg/dL (7.8-10.44); Carbon Dioxide 20 mmol/L (23-31); Chloride 110 mmol/L (98-107); Estimated GFR-MDRD 24; Globulin 3.1 g/dL (2.4-3.5); Glucose 135 mg/dL (83-110); Potassium 4.8 mmol/L (3.5-5.1); Protein, Total 6.6 g/dL (5.8-8.1); Sodium 140 mmol/L (136-145)
[2019-09-13] MEDS: Furosemide 20 MG/2 ML VIAL SLOW IVP SCH (05:52)
[2019-09-13 06:25] VITALS: BMI 38.4
[2019-09-13] MEDS: Pantoprazole 40 MG VIAL IVP SCH (08:06)
[2019-09-13] MEDS ORDERED: cefTRIAXone\\ROCEPHIN 1 GM in Sodium Chloride 0.9% 100 ML IVPB SCH (09:00)
[2019-09-13] MEDS: Octreotide Acetate 1,250 MCG in Sodium Chloride 0.9% 250 ML 250 ML IVPB SCH (09:25)
--- NOTE | 2019-09-13 09:26 | CON ---
DATE OF CONSULTATION: HISTORY OF PRESENT ILLNESS: Mr. Schneider is an 83-year-old white male, who was admitted due to hematemesis/GI bleed, development of non-ST elevation SD and has a known history of cirrhosis. We are now consulting with this patient due to his acute kidney injury. The patient has been placed in the ICU. He has been evaluated by GI and Pulmonary Medicine. He is currently being diuresed due to his third-spacing. In addition, we have started him on albumin infusion. Review of the urine sediment and urine chemistry suggest he may have a hemodynamically-mediated renal dysfunction. REVIEW OF SYSTEMS: No chest pain. Positive for hematemesis. Positive for abdominal discomfort. No nausea. No hematochezia. No melena. No dysuria. No fever or chills. Denies any shortness of breath. No syncopal episode. MEDICATIONS: Home medications included; 1. Robaxin 500 mg q.i.d. 2. Glyburide 5 mg daily. 3. Zocor 20 mg daily. 4. Metformin 500 mg p.o. daily. 5. Losartan 50 mg daily. 6. Norvasc 5 mg tablet once a day. 7. He is also on vitamin B12 of 1000 mcg p.o. daily. His hospital medications shows the following; 1. Tylenol p.r.n. 2. DuoNeb q.6. 3. Tessalon Perles 100 mg p.o. t.i.d. p.r.n. 4. Ceftriaxone 1 g IV daily. 5. He is on octreotide IV drip. 6. Norepinephrine drip. 7. Protonix 40 mg IV daily. PAST MEDICAL HISTORY: Includes the following; 1. The patient has history of cirrhosis. 2. He has type 2 diabetes mellitus. 3. He has hypertension, hyperlipidemia, and chronic low back pain. 4. He has also DJD. PAST SURGICAL HISTORY: He has a history of cirrhosis - secondary to fatty liver, history of hepatic lesions ? of cancer. He is status post ablation/microwave therapy of the hepatic lesions, status post bilateral knee replacement, status post cholecystectomy, status post tonsillectomy, status post cardiac cath with coronary stent placement. ALLERGIES: NONE. TRAUMA: None. IMMUNIZATIONS: Up-to-date. HOSPITALIZATIONS: Please see past medical history. SOCIAL HISTORY: The patient continues to smoke a minimum of 3 to 4 cigarettes per day, but usually heavy smoker in the past. Denies any alcohol or IV drug abuse. He lives with his aunt. He lives in [place]. He has sedentary lifestyle. FAMILY HISTORY: No family history of ESRD. PHYSICAL EXAMINATION: VITAL SIGNS: Blood pressure is noted at 102/64, heart rate 105, respiratory rate 14, and pulse ox 91%. GENERAL: Noted to be awake, supine, comfortable. Decreased hearing. Intermittently confused, obese. SKIN: Adequate turgor. HEENT: He has pinkish conjunctivae. Anicteric sclerae. NECK: No neck mass. No carotid bruits. No JVD. CHEST: No deformities. LUNGS: Clear breath sounds. HEART: Normal sinus rhythm. No murmurs. No gallops. No rubs. ABDOMEN: Globular, soft, and nontender. No masses. EXTREMITIES: No edema. No deformities. NEUROLOGICAL: Moving all extremities. No tremors. No asterixis. Occasionally confused. LABORATORY DATA: Laboratories of September 13, 2019; sodium 140, potassium 4.8, chloride 110, carbon dioxide 20, BUN 82, creatinine 2.54, glucose 135, AST 132, and ALT 43. On September 12, 2019, creatinine noted at 2.19. On September 11, 2019, creatinine 1.5. Urinalysis shows protein is 30, rbc 4 to 6, wbc 4 to 6. Urine sodium less than 20. Urine creatinine 193. Fractional excretion of sodium is less than 1%. ASSESSMENT AND PLAN: 1. Acute kidney injury on top of his chronic renal failure. Consider hemodynamically-mediated renal dysfunction. The patient may simply be prerenal. Please note, he was on losartan when he came in. I could not rule out the possibility of a hepatorenal syndrome. However, we need to empirically volume replete this patient to see if he will have some improvement. If still no improvement, consider giving him big amounts of normal saline. Continue to optimize hemodynamics. Albumin infusion has been started. 2. Cirrhosis - supportive care. The patient will be evaluated by Palliative Care. Agree with supportive care. No indication for any dialytic intervention. Job ID: [id number]
--- NOTE | 2019-09-13 10:48 | PDOC.CPN ---
- Subjective Date: 09/13/19 Time: 08:30 Interval history: The pt seen and examined. No overnight events. No cardiac complaints. - Objective Allergies/Adverse Reactions: Allergies Allergy/AdvReac Type Severity Reaction Status Date / Time No Known Drug Allergies Allergy Verified 09/11/19 10:50 Visit Medications: Current Medications Acetaminophen (Tylenol) 650 mg PO Q4H PRN PRN Reason: Headache/Fever/Mild Pain (1-3) Acetaminophen (Tylenol) 650 mg [place] Q4H PRN PRN Reason: Headache/Fever/Mild Pain (1-3) Albumin Human (Albumin 25%) 25 gm IVPB Q6HR KAVITA Stop: 09/15/19 12:01 Last Admin: 09/13/19 05:53 Dose: 25 gm Albuterol/Ipratropium (Duoneb) 3 ml NEB [id number] KAVITA Last Admin: 09/13/19 06:47 Dose: 3 ml Benzonatate (Tessalon) 100 mg PO TIDPRN PRN PRN Reason: Cough Last Admin: 09/12/19 08:17 Dose: 100 mg Dextrose/Water (Dextrose 50%) 25 gm SLOW IVP PRN PRN PRN Reason: Hypoglycemia Glucagon (Glucagon) 1 mg IM PRN PRN PRN Reason: Hypoglycemia Dextrose/Water (D5w) 1,000 mls @ 0 mls/hr IV .Q0M PRN PRN Reason: Hypoglycemia Octreotide Acetate 1,250 mcg/ (Sodium Chloride) 251.25 mls @ 5.02 mls/hr IVPB INF KAVITA Stop: 09/13/19 23:59 Last Admin: 09/13/19 09:25 Dose: 251.25 mls Norepinephrine Bitartrate 8 mg (/ Dextrose/Water) 250 mls @ 0 mls/hr IVPB INF PRN; Protocol PRN Reason: TO MAINTAIN MAP > 65 Last Admin: 09/11/19 18:44 Dose: 250 mls Dopamine HCl/Dextrose (Dopamine 400 Mg/D5w 250 Ml) 250 mls @ 0 mls/hr IVPB INF KAVITA Last Admin: 09/12/19 10:00 Dose: 250 mls Ceftriaxone Sodium 1 gm/ (Sodium Chloride) 100 mls @ 200 mls/hr IVPB 0900 KAVITA Last Admin: 09/13/19 08:05 Dose: 100 mls Insulin Human Lispro (Humalog) 0 units SC .MODERATE SLIDING SC PRN PRN Reason: Moderate Correctional Scale Last Admin: 09/12/19 21:35 Dose: 2 unit Insulin Human Lispro (Humalog) 0 units SC .BEDTIME SLIDING SC PRN PRN Reason: Bedtime Correctional Scale Ondansetron HCl (Zofran) 4 mg IVP Q6H PRN PRN Reason: Nausea/Vomiting Pantoprazole Sodium (Protonix) 40 mg IVP BID KAVITA Last Admin: 09/13/19 08:06 Dose: 40 mg Sodium Chloride (Flush - Normal Saline) 10 ml IVF PRN PRN PRN Reason: Saline Flush Sodium Chloride (Flush - Normal Saline) 10 ml IVF PRN PRN PRN Reason: Saline Flush Sodium Chloride (Normal Saline Pf) 10 ml FS PRN PRN PRN Reason: RECONSTITUTION Last Admin: 09/11/19 20:42 Dose: 10 ml Throat Lozenges (Cepastat Lozenges) 1 jose francisco PO Q2H PRN PRN Reason: Sore Throat Vital Signs & Weight: Vital Signs Temp Pulse Resp Pulse Ox 09/13/19 08:00 92 L 09/13/19 07:00 97.9 F 09/13/19 06:47 99 18 95 09/13/19 04:00 97.9 F 09/13/19 00:12 89 18 96 09/13/19 00:00 97.5 F L Weight 283 lb 8.231 oz - Physical Exam General: alert & oriented x3 HEENT: mucus membranes moist Neck: supple neck Cardiac: regular rate and rhythm, S1/S2 Lungs: decreased breath sounds, scattered rhonchi Extremities: other: (generalized edema) Skin: other (weeping) - Labs Result Diagrams: 09/13/19 04:10 09/13/19 04:10 Troponin/CKMB CK-MB (CK-2) 14.3 ng/mL (0-6.6) H* 09/10/19 15:58 Troponin I 1.342 ng/mL (< 0.028) H* 09/10/19 21:39 - Telemetry Sinus rhythms and dysrhythmias: sinus rhythm - Assessment/Plan Assessment/Plan: 1. NSTEMI - possible 2/2 GI bleed; the pt may need Stress test in future when his condition is more stable 2. Hematemesis/GI bleed - H&H has been stable 3. Acute blood loss anemia - H&H has been stable 4. MK on CKD - consulted by Dr Unger; Albumin was started from today for 3rd spacing 5. HTN - stable without any BP med 6. DM type 2 - managed by PCP 7. HLD - will resume statin when the pt's condition is more stable 8. Non-ETOH Cirrhosis 9. Tobacco abuse - smoking cessation recommended MAR reviewed * Echo on 09/11/2019 with EF 30-35%, hypokinetic inferior wall, porb dd, mild dilated LA, trace MR and TR, mild with valve area 1.66 sq cm
--- NOTE | 2019-09-13 11:00 | PDOC.PALPN ---
Palliative Progress Note - Subjective Family at bedside. patient sitting in chair, on o2. Push of speech with accessory muscle use, cough. Chamberlain draining clear urine. Pain to left lower back. Denies: nausea, vomiting, headache,chest discomfort. - Objective Vital Signs: Vital Signs - Most Recent Temp Pulse Resp BP Pulse Ox 97.9 F 99 18 101/75 92 L 09/13/19 07:00 09/13/19 06:47 09/13/19 06:47 09/11/19 07:54 09/13/19 08:00 - Physical Exam Constitutional: mild distress HEENT: PERRLA, EOMI Deviation from normal: slightly icteric Respiratory: tachypnea Deviation from normal: Labored respirations, push of speech, cough Cardiovascular: RRR Deviation from normal: Distended mild tenderness Neurological: moves all 4 limbs Psychiatric: A&O x 3 Skin: cap refill <2 seconds Deviation from normal: Fragile skin - Assessment (1) Palliative care encounter Code(s): Z51.5 - ENCOUNTER FOR PALLIATIVE CARE Current Visit: Yes Status: Acute (2) Acute blood loss anemia Code(s): D62 - ACUTE POSTHEMORRHAGIC ANEMIA Current Visit: Yes Status: Acute (3) Coagulopathy Current Visit: Yes Status: Acute (4) GI bleed Code(s): K92.2 - GASTROINTESTINAL HEMORRHAGE, UNSPECIFIED Current Visit: Yes Status: Acute (5) Cirrhosis Code(s): K74.60 - UNSPECIFIED CIRRHOSIS OF LIVER Current Visit: Yes Status: Chronic Qualifiers: Hepatic cirrhosis type: other cirrhosis Qualified Code(s): K74.69 - Other cirrhosis of liver - Plan Plan: Family meeting, discussed at length with patient and family hospice care verses continuation with treatment measures. Discussed complex disease processes. Patient stated 09/12 and again today he wishes to go home, however he does not want to be a burden on anyone. He adamantly states he does not wish to go to rehab or a skilled facility. Morphine 2 mg q 4 hr IVP ordered for pain or shortness of breath *Hospice contacted and choice letter signed for [facility] hospice at patient and family wishes for information session on services provided *Family and patient will weigh options and goal of care. *Palliative care to continue to follow and support patient and family as they discuss disease trajectory and possible outcomes and align with patient wishes. J Flynn machine woodworking sander also following. [80] minutes spent on this encounter with >50% of the time in counseling and coordination of care.
[2019-09-13] MEDS: Morphine 2 MG/ML SYRINGE SLOW IVP PRN ×2 (11:07→17:39)
--- NOTE | 2019-09-13 12:28 | PRG ---
DATE OF SERVICE: 09/13/2019 SERVICE: Pulmonary Medicine. INTERVAL HISTORY: The patient is doing good from a respiratory standpoint. Blood pressures remain marginal. He denies any shortness of breath, nausea, or vomiting. He is having left-sided flank discomfort. This is constant, was not there after extubation yesterday. Otherwise, there has been no interval change to his condition. PHYSICAL EXAMINATION: VITAL SIGNS: Afebrile, pulse 96, blood pressure 84/51, respirations 14, saturation 89% on 3 L nasal cannula. GENERAL: The patient is awake and alert, in no apparent distress. LUNGS: Decent air entry. There is no prolonged expiratory phase or wheezing appreciated. HEART: Normal rate and regular. ABDOMEN: Soft, nontender, nondistended. Bowel sounds are positive. MUSCULOSKELETAL: No cyanosis or clubbing. There is 1 to 2+ pitting in the bilateral lower extremities. NEUROLOGIC: Grossly nonfocal. LABORATORY DATA: WBC 6.5, hemoglobin 10.4, platelets 66,000. Creatinine gently up trending to 2.54, BUN 82, bicarb 20. Basic metabolic profile is otherwise unremarkable. Liver function studies are unremarkable. ASSESSMENT: 1. Acute hypoxic respiratory failure, improving. 2. Acute blood loss anemia, stable. 3. Hemorrhagic shock, resolved. 4. Acute kidney injury on chronic kidney disease 3, stabilizing. 5. [id number] myocardial infarction. 6. Acute on chronic systolic and diastolic heart failure. 7. 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 8. Status post varicocele bleed. DISCUSSION AND PLAN: At this point, the patient is electing to transition home under the care of hospice. He has full appreciation for the implications of this choice. He would like no additional procedures at this time. From my perspective, he is making a decision based on good rationality. Pulmonary will continue to follow in this location, but if he chooses to transition home with hospice, this can likely be performed today. Job ID: [id number]
--- NOTE | 2019-09-13 18:40 | PDOC.HOSPP ---
- Subjective Encounter Date: 09/13/19 Encounter Time: 13:00 Subjective: awake, responds to verbal stimuli appears lethargic, not eating much per staff son at bedside - Objective Vital Signs & Weight: Vital Signs (12 hours) Temp Pulse Resp Pulse Ox 09/13/19 12:56 107 H 28 H 09/13/19 08:00 92 L 09/13/19 07:00 97.9 F 09/13/19 06:47 99 18 95 Weight Weight 283 lb 8.231 oz Most Recent Monitor Data Heart Rate from ECG 101 NIBP 120/65 NIBP BP-Mean 83 Respiration from ECG 17 SpO2 95 I&O: 09/12/19 09/13/19 09/14/19 06:59 06:59 06:59 Intake Total 2444 1532.1 1118.5 Output Total 621 603 420 Balance 1823 929.1 698.5 Result Diagrams: 09/13/19 04:10 09/13/19 04:10 Additional Labs: Accuchecks 09/13/19 09/13/19 09/12/19 10:43 06:09 21:37 POC Glucose 145 H 147 H 160 H - Exam General Appearance: ill appearing Eye: PERRL, anicteric sclera ENT: no oropharyngeal lesions, dry oral mucosa Neck: supple, no JVD Heart: RRR, no murmur Respiratory: no wheezes, rales Gastrointestinal: soft, non-tender, normal bowel sounds Extremities: no cyanosis, 1+ LE edema Neurological: cranial nerve grossly intact, no focal deficits Hosp A/P (1) GI bleed Code(s): K92.2 - GASTROINTESTINAL HEMORRHAGE, UNSPECIFIED Status: Resolved (2) Acute blood loss anemia Code(s): D62 - ACUTE POSTHEMORRHAGIC ANEMIA Status: Resolved (3) Cirrhosis Code(s): K74.60 - UNSPECIFIED CIRRHOSIS OF LIVER Status: Chronic Qualifiers: Hepatic cirrhosis type: other cirrhosis Qualified Code(s): K74.69 - Other cirrhosis of liver (4) MK (acute kidney injury) Code(s): N17.9 - ACUTE KIDNEY FAILURE, UNSPECIFIED Status: Acute (5) NSTEMI (non-ST elevated myocardial infarction) Code(s): I21.4 - NON-ST ELEVATION (NSTEMI) MYOCARDIAL INFARCTION Status: Resolved (6) Metabolic acidosis Code(s): E87.2 - ACIDOSIS Status: Acute (7) Coagulopathy Status: Resolved (8) Tobacco abuse Code(s): Z72.0 - TOBACCO USE Status: Chronic - Plan got a total of 5 u prbc and 3 ffp's 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
--- NOTE | 2019-09-13 18:50 | EKG ---
Test Reason : STAT AFIB Blood Pressure : / mmHG Vent. Rate : 091 BPM Atrial Rate : 091 BPM P-R Int : 196 ms QRS Dur : 102 ms QT Int : 364 ms P-R-T Axes : 036 -08 166 degrees QTc Int : 447 ms Normal sinus rhythm with sinus arrhythmia Low voltage QRS Inferior-posterior infarct , possibly acute Cannot rule out Anterior infarct , age undetermined ACUTE KS / STEMI Consider right ventricular involvement in acute inferior infarct Abnormal ECG When compared with ECG of 10-SEP-2019 15:48, (Unconfirmed) Questionable change in QRS duration Confirmed by DR. Dilcia ORNELAS ([id number]) on 09/13/2019 6:50:03 PM Referred By: JORGE Confirmed By:DR. Dilcia ORNELAS
--- NOTE | 2019-09-14 14:49 | DIS ---
DATE OF ADMISSION: 09/10/2019 DATE OF DISCHARGE: 09/13/2019 DISCHARGE DISPOSITION: To home with hospice, [facility]. PRIMARY DISCHARGE DIAGNOSES: 1. Acute hemorrhagic shock with gastrointestinal bleed and acute blood loss anemia. 2. History of cirrhosis due to nonalcoholic steatohepatitis. 3. History of hepatocellular carcinoma for which he follows up at [place] in [place]. 4. Acute kidney injury, non ST elevation myocardial infarction. 5. Metabolic acidosis. 6. Coagulopathy due to liver disease. 7. Tobacco abuse. 8. New onset congestive heart failure with ejection fraction of 35% and systolic dysfunction. PROCEDURES DONE DURING HOSPITALIZATION: Abdomen and pelvic CAT scan done on the day admission showed hepatic cirrhosis, possible infiltrative hepatocellular carcinoma involving right lobe of liver. Diffuse mural thickening of the esophagus could represent esophagitis/cancer/varices, small volume ascites, anasarca and bilateral pleural effusion right greater than left, upper endoscopy done on 09/10/2019 showed 3 trunks of large distal esophageal varices including 1 with a red spot and fibrin clot near the gastroesophageal junction with possible site of bleeding. Three bands were placed to these varices in the distal esophagus including over the fibrin clot successfully. The stomach had mucosal friability, but no active bleeding. Large paraesophageal hiatal hernia. Diffuse portal hypertensive gastropathy was seen. No gastric varices were visualized. Echo with 2D Doppler showed an EF of 30% to 35 % inferior wall hypokinesis, diastolic dysfunction, mild aortic stenosis with valve area of 1.66 square cm. H and H 10 and 31 on the day of discharge with MCV of 95, platelet count of 66. INR 1.6, PT 18, PTT 33. Blood gas on admission showed a pH of 7.23, pCO2 37, PO2 99. Discharge BUN and creatinine are 82 and 2.5, serum bicarb was 20 on the day of discharge. Albumin 3.5, admitting BUN and creatinine was 43 and 1.4. CK-MB 14.3, troponin I peaked up to 1.49. BNP 755 on the day of admission. Serum bicarb was 15 on the day of admission. INPATIENT CONSULT: 1. Dr. Surinder Sanchez for Gastroenterology. 2. Dr. Rojas for Cardiology. 3. Dr. Fong for Pulmonology. 4. Dr. Unger for Nephrology. DISCHARGE MEDICATION: 1. Norvasc 5 mg p.o. at bedtime. 2. Vitamin D3 1000 units p.o. daily. 3. Vitamin B12 1000 mcg p.o. daily. 4. Multivitamin one capsule daily. 5. Simvastatin 20 mg p.o. at bedtime. 6. Protonix 40 mg twice daily. ALLERGIES: NO KNOWN DRUG ALLERGIES. DISCHARGE PLAN: The patient is planned to go into hospice at home. His overall prognosis is poor. BRIEF COURSE DURING HOSPITALIZATION: The patient initially got admitted on the after he started having severe hematemesis. He has had this for 2 days prior to arrival here. The patient had known history of cirrhosis due to nonalcoholic steatohepatitis and hepatocellular carcinoma as well. He has had prior radioactive treatment for one of the lesions in the liver and microwave ablation was planned in [facility] in the coming months for the 2nd lesion. In view of this history and the patient having kaylynn hematemesis with risk for aspiration, the patient was intubated in the ER. He also had pH of 7.2 on the blood gas with acute respiratory failure with hypoxia. He has had consultation with Dr. Surinder Sanchez. The patient had nearly 5 units of packed cell transfusions and 3 units of fresh frozen plasma given in view of hemorrhagic shock. He has had upper endoscopy done with banding of 3 varices. Mr. Schneider was on octreotide and Protonix drip initially. He has had an elevated troponin of 1.[address] elevation [place]. Echo revealed new CHF with ejection fraction of 35% and inferior wall hypokinesis as well. His BUN and creatinine started to rise up with acute kidney injury. In view of multiple organ involvement and his underlying hepatocellular carcinoma, the patient and family decided to go home with hospice. Case Management consultation was requested for the same. He has had palliative care consultations as well. He was successfully extubated, although during his stay here. He was very lethargic and had poor oral intake. Per family's choice [facility] with hospice has been arranged. Please note I have seen and examined the patient on the day of discharge. Job ID: [id number] [facility]
--- NOTE | 2019-09-15 04:28 | PQF ---
[employer] Crystal Reports Winform ViewerBLASINGJUAN CHOWDARY VINAYA KUMAR MD [id number] CLINICAL DOCUMENTATION CLARIFICATION FORM: POST DISCHARGE Addendum to original discharge summary date: ____ Late entry note date: __ DATE: 09/15/19 ATTN:Aamir Simmons Please exercise your independent, professional judgment in responding to the clarification form. Clinical indicators are provided on the bottom of this form for your review Can you please further specify the etiology of esophageal varices? 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 Thank You. 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 Op Report pg.2- three trunks of large distal esophageal varices, presenting the probable site of this bleeding Op Report pg.2- Diffuse portal hypertensive gastropathy PN 09/12- esophageal variceal hemorrhage, status post endoscopic variceal band ligation DS pg.1- admission showed hepatic cirrhosis, possible infiltrate hepatocellular carcinoma DS pg.1- esophagus could presents esophagitis/cancer/varices RISK FACTORS Hemorrhagic shock- H and P pg.3 Hypertension- H and P pg.1 Acute blood loss anemia- PN 09/12 pg,1 Cirrhosis secondary to nonalcoholic steatohepatitis- PN 09/12 pg.1 Hepatocellular carcinoma- PN 09/12 pg.1 TREATMENTS: Control of bleeding Op report 09/10 Dr. Sanchez endoscopic variceal band- Op report 09/10 pg.1 Blood transfusion- blood bank IV Fluids- MAR 09/10 Epinephrine 2mg IV- DEC (This form is maintained as a part of the permanent medical record) 2014 [employer] All Rights Reserved [email or web address] [not provided] MTDD
== END 2019-09-13 17:59 | disposition hospice, home (50) | DRG 432 ==
LOC: ERS 15:36 → SDC/OP 20:37 → CCU 20:39
PROVIDERS: ADMIT Internal Medicine; ATTEND Internal Medicine
PROC: 02HV33Z Insertion of Infusion Device into Superior Vena Cava, Percutaneous Approach (ICD-10-PCS; principal; 2019-09-10)
PROC: 0BH17EZ Insertion of Endotracheal Airway into Trachea, Via Natural or Artificial Opening (ICD-10-PCS; 2019-09-10)
PROC: 5A1945Z Respiratory Ventilation, 24-96 Consecutive Hours (ICD-10-PCS; 2019-09-10)
PROC: 3E033XZ Introduction of Vasopressor into Peripheral Vein, Percutaneous Approach (ICD-10-PCS; 2019-09-10)
PROC: 06L38CZ Occlusion of Esophageal Vein with Extraluminal Device, Via Natural or Artificial Opening Endoscopic (ICD-10-PCS; 2019-09-10)
PROC: 0W3P8ZZ Control Bleeding in Gastrointestinal Tract, Via Natural or Artificial Opening Endoscopic (ICD-10-PCS; 2019-09-10)
PROC: 30233L1 Transfusion of Nonautologous Fresh Plasma into Peripheral Vein, Percutaneous Approach (ICD-10-PCS; 2019-09-10)
PROC: 30233N1 Transfusion of Nonautologous Red Blood Cells into Peripheral Vein, Percutaneous Approach (ICD-10-PCS; 2019-09-10)
PROC: 30233K1 Transfusion of Nonautologous Frozen Plasma into Peripheral Vein, Percutaneous Approach (ICD-10-PCS; 2019-09-10)
DX: K74.69 Other cirrhosis of liver (principal); I85.11 Secondary esophageal varices with bleeding; I21.4 Non-ST elevation (NSTEMI) myocardial infarction; R57.8 Other shock; J96.01 Acute respiratory failure with hypoxia; I50.43 Acute on chronic combined systolic (congestive) and diastolic (congestive) heart failure; D62 Acute posthemorrhagic anemia; C22.0 Liver cell carcinoma; E87.2 Acidosis; R18.8 Other ascites; D68.4 Acquired coagulation factor deficiency; K76.6 Portal hypertension; N17.9 Acute kidney failure, unspecified; I13.0 Hypertensive heart and chronic kidney disease with heart failure and stage 1 through stage 4 chronic kidney disease, or unspecified chronic kidney disease; Z51.5 Encounter for palliative care; K75.81 Nonalcoholic steatohepatitis (NASH); E78.00 Pure hypercholesterolemia, unspecified; Z96.653 Presence of artificial knee joint, bilateral; K44.9 Diaphragmatic hernia without obstruction or gangrene; K31.89 Other diseases of stomach and duodenum; F17.210 Nicotine dependence, cigarettes, uncomplicated; N18.3 Chronic kidney disease, stage 3 (moderate); E11.22 Type 2 diabetes mellitus with diabetic chronic kidney disease; M19.90 Unspecified osteoarthritis, unspecified site; E78.5 Hyperlipidemia, unspecified; Z98.84 Bariatric surgery status; Z90.49 Acquired absence of other specified parts of digestive tract; Z79.84 Long term (current) use of oral hypoglycemic drugs; Z79.899 Other long term (current) drug therapy; E66.9 Obesity, unspecified; Z68.38 Body mass index [BMI] 38.0-38.9, adult
CPT/HCPCS: 36415; 36416; 36430; 71045; 74177; 80048; 80053; 81003; 81015; 82140; 82550; 82553; 82570; 82805; 83690; 83880; 84300; 84484; 85014; 85018; 85025; 86850; 86900; 86901; 93005; 93010; 93306; 94002; 94003; 94640; C9113; J0171; J0696; J1265; J1940; J2270; J2354; J2370; J2405; J3010; J3490; J7050; J7070; J7620; P9016; P9047; P9059; Q9967